=== PATIENT | female | born 1975 | race Hispanic/Latino ===

== ENCOUNTER 2018-11-07 11:04 | Emergency (ER) | payer SELFPAY ==
[~2018-11-07] VITALS: Ht 167.6 cm; Wt 104.3 kg
--- NOTE | 2018-11-07 11:40 | NUR ---
PT LEFT AFTER MSE.
== END 2018-11-07 11:40 | disposition left against medical advice (07) ==
LOC: ER 11:04
DX: R51 Headache (principal)

== ENCOUNTER → 2019-01-07 | Outpatient (CLI) | payer OTHER | LOC: MAMMO 08:41 | PROVIDERS: ATTEND Student in an Organized Health Care Education/Training Program | DX: Z12.31 Encounter for screening mammogram for malignant neoplasm of breast (principal) | CPT/HCPCS: 77067 ==